=== PATIENT | female | born 1955 | race Caucasian/White ===

== ENCOUNTER 2020-04-01 07:51 | Outpatient (CLI) | payer MEDICARE, BC ==
--- NOTE | 2020-04-01 08:44 | RAD ---
LUMBAR SPINE 4 VIEWS WITH FLEXION AND EXTENSION: HISTORY: Lumbar radiculopathy. FINDINGS: There is a transitional vertebra which will be labeled as S1 on this exam. There is grade 1 anteroli sthesis at L5-S1. Moderate degenerative change with osteophytes. Bridging osteophytes on the left a t L1-2 and L2-3. Mild anterior wedging of L1. Prominent facet hypertrophy. The anterolisthesis dhaliwal s not appear to have significantly changed from flexion or extension. IMPRESSION: 1. A transitional vertebra. 2. Moderate degenerative changes of the lumbar spine as described with anterolisthesis at L5-S1. POS: AGW
== END 2020-04-01 07:52 | disposition home or self-care (01) ==
LOC: TBSIIMAG 07:51
PROVIDERS: ATTEND Neurological Surgery
DX: M47.26 Other spondylosis with radiculopathy, lumbar region (principal); M43.17 Spondylolisthesis, lumbosacral region
CPT/HCPCS: 72110